=== PATIENT | female | born 1975 | race Two or more races ===

== ENCOUNTER 2022-07-29 00:02 | Emergency (ER) | payer OTHER ==
[~2022-07-29] VITALS: Ht 162.6 cm; Wt 59.0 kg
[2022-07-29 02:23] VITALS: BP 148/85
[2022-07-29] MEDS ORDERED: ACET500T58 PO (03:54)
[2022-07-29] MEDS ORDERED: CEPH500C PO (03:54)
[2022-07-29] MEDS ORDERED: TETANUS-DIPTH-ACEL PERTUSSIS 0.5ML SYR Tdap IM ONE (04:00)
== END 2022-07-29 04:40 | disposition home or self-care (01) ==
LOC: ER 00:02
DX: S61.211A Laceration without foreign body of left index finger without damage to nail, initial encounter (principal); W26.0XXA Contact with knife, initial encounter; Y93.89 Activity, other specified; Y92.89 Other specified places as the place of occurrence of the external cause; Y99.8 Other external cause status
CPT/HCPCS: 12002; 90471; 90715